=== PATIENT | female | born 1945 | race Caucasian/White ===

== ENCOUNTER 2019-02-10 15:26 | Emergency (ER) | payer OTHER, MEDICARE ==
[~2019-02-10] VITALS: Ht 160 cm; Wt 65.8 kg
[2019-02-10 15:35] VITALS: BP_SYST 125
[2019-02-10 17:35] VITALS: BP_SYST 125
== END 2019-02-10 17:34 | disposition home or self-care (01) ==
LOC: SED 15:26
DX: S93.401A Sprain of unspecified ligament of right ankle, initial encounter (principal); Z88.8 Allergy status to other drugs, medicaments and biological substances; Z85.07 Personal history of malignant neoplasm of pancreas; Z90.710 Acquired absence of both cervix and uterus; X50.9XXA Other and unspecified overexertion or strenuous movements or postures, initial encounter; Y93.89 Activity, other specified; Y92.89 Other specified places as the place of occurrence of the external cause; Y99.8 Other external cause status
CPT/HCPCS: 99283